=== PATIENT | male | born 1980 | race African-American/Black ===

== ENCOUNTER 2019-01-09 20:44 | Emergency (ER) | payer OTHER ==
[~2019-01-09] VITALS: Ht 175.3 cm; Wt 106.6 kg
[2019-01-09 20:58] VITALS: Ht 175.3 cm; Wt 106.6 kg
[2019-01-09 23:31] VITALS: BP 124/74
== END 2019-01-09 23:31 | disposition home or self-care (01) ==
LOC: ED 20:44
DX: M25.572 Pain in left ankle and joints of left foot (principal); Z98.890 Other specified postprocedural states; X58.XXXA Exposure to other specified factors, initial encounter; Y93.89 Activity, other specified; Y92.89 Other specified places as the place of occurrence of the external cause; Y99.8 Other external cause status